=== PATIENT | male | born 1980 | race Caucasian/White ===

== ENCOUNTER 2024-02-22 19:23 | Emergency (ER) | payer OTHER, SELFPAY ==
[2024-02-22 19:26] VITALS: BP 178/120
[2024-02-22 20:13] LABS: ALT (SGPT) 45 U/L (0-50); AST (SGOT) 28 U/L (17-59); Albumin 4.6 g/dl (3.5-5.0); Alkaline Phosphatase 70 U/L (38-126); Blood Urea Nitrogen 15 mg/dl (9-20); Calcium 10.2 mg/dl (8.4-10.2); Carbon Dioxide 29 mmol/L (22-30); Chloride 103 mmol/L (98-107); Glucose 108 mg/dl (70-99); Potassium 4.1 mmol/L (3.5-5.1); Sodium 139 mmol/L (135-145); Total Bilirubin 0.4 mg/dl (0.2-1.3); Total Protein 7.3 g/dl (6.3-8.2); eGFR > 60.00
--- NOTE | 2024-02-22 20:27 | ED.GENMED ---
History of Present Illness
General
Chief Complaint: Breathing Problem
Source: patient
Exam Limitations: none
Time Seen by Provider: 02/22/24 20:19
Travel History
Have you had any contact with someone who has COVID-19?: No
Do you have any symptoms of coronavirus? Fever > 100 degrees, chills, cough, shortness of breath, sore throat, loss of taste or smell, muscle aches, or headache?: No
History of Present Illness
History of Present Illness:
43-year-old male with history of hypertension on 5 mg lisinopril presents 6 days into COVID illness with shortness of breath fatigue symptoms getting worse. Check his blood pressure at home as well and his blood pressure was elevated. He spoke
with his family doctor who recommended taking an additional dose of lisinopril which he did. No vomiting. No current fever. He states he is prone to pneumonia. No other complaints at this time
Past History
Past History
ED Past Medical History: Asthma and Other (pneumonia)
ED Past Surgical History: Cholecystectomy and Other (Eye surgery, hernia repair)
Social History
Tobacco: Non-smoker
Personal: Single
Living: with family
Employment: Employed
Phy Exam
Physical Exam
Physical Exam:
General: Well-appearing obese male no acute respiratory distress HEENT: Normocephalic atraumatic
Heart: Regular rate and rhythm no murmurs
Lungs: Clear no wheeze or rales
Extremities: No cyanosis or edema
Skin: Warm no rash
Course
Orders/Labs/Results
Orders:
Orders
02/22/24 19:29
Electrocardiogram (*1) Urgent
Reason for Study: Shortness of Breath
EKG- Treatment ONCE
CR Chest - 2 Views Urgent
Comment:
Reason For Exam: SOB
02/22/24 19:40
Comprehensive Metabolic Panel Urgent
06/07/24 20:27
0.9% Sodium Chloride 1000 ml [Nss] 1,000 ml IV BOLUS
02/22/24 20:33
Complete Blood Count/With Diff Urgent
Troponin I Urgent
Abnormal Lab Results
02/22/24
19:40
Glucose 108 H mg/dl
(70-99)
02/22/24 20:33
02/22/24 19:40
Vital Signs
Initial and Last Documented VS:
Initial Vital Signs
Temp Pulse Resp BP Pulse Ox
98.3 F 108 20 178/120 98
02/22/24 19:26 02/22/24 19:26 02/22/24 19:26 02/22/24 19:26 02/22/24 19:26
Last Documented Vital Signs
Temp Pulse Resp BP Pulse Ox
98.3 F 94 26 126/77 97
02/22/24 19:26 02/22/24 22:04 02/22/24 21:45 02/22/24 22:04 02/22/24 22:04
MDM/Problems Addressed
Differential Diagnosis Includes:
Shortness of breath known COVID infection. Question possible dehydration versus pneumonitis versus secondary bacterial pneumonia. Will check for anemia as well.
Labs and EKG pending. X-ray pending. Fluids ordered.
*Critical Care Note
Total Time (30-74mins, 75-104mins- exclusive of procedures): Not Applicable
Update Note
Update Note:
EKG shows sinus rhythm. Troponin undetectable chest x-ray clear blood pressure improved. Heart rate is in the 90s oxygen level in the upper 90s. Suspect symptoms related to recent COVID illness. He has an inhaler at home which I continue to
advise to use. No indication for admission. Stable for discharge
ED Attending Note
-
Portions of this chart may have been created with voice recognition software.� Occasional wrong word or��sound alike� substitutions may have occurred due to the inherent limitations of voice recognition software.
Discharge Plan
Departure
Patient Disposition: Home (Routine Discharge)
Date of Disposition: 02/22/24
Time of Disposition: 22:16
Patient with high blood pressure during this ER visit?: No
Discharge Problem:
COVID-19
Instructions: Shortness of Breath (Dyspnea) (DC)
Prescriptions:
No Action
No Current Medications
0
Referrals:
James Hoyos DO [Family Provider] -
Activity Restrictions/Additional Instructions:
Stay hydrated. Continue to use inhaler. Return if needed otherwise follow-up with family doctor
Interventions
Interventions:
*Risk Screen - Suicide Last Done: 02/22/24 19:26
*General Assessment Last Done: 02/22/24 19:26
*Neglect/Abuse Screening Last Done: 02/22/24 19:26
ED- Fall Risk Assessment Last Done: 02/22/24 21:06
*ED COVID-19 Vaccine History Last Done: 02/22/24 19:58
ED- Cardiac Assessment Last Done: 02/22/24 21:06
ED- Pulmonary Assessment Last Done: 02/22/24 21:06
Discharge Date and Time
Print Language: LAO
[2024-02-22] MEDS: NSS 1000 IV (20:53)
[2024-02-22 20:55] LABS: % Basophils 0.3 % (0-2); % Eosinophils 1.8 % (0-6); % Immature Granulocytes 0.2 % (0-0.5); % Lymphocytes 30.5 % (20.5-51.1); % Monocytes 6.9 % (1.7-9.3); % Neutrophils 60.3 % (42.2-75.2); Absolute Eosinophils 0.2 10^3/uL (0-0.7); Absolute Lymphocytes 2.7 10^3/uL (1.2-3.4); Absolute Monocytes 0.6 10^3/uL (0.1-0.6); Absolute Neutrophils 5.3 10^3/uL (1.4-6.5); Hematocrit 39.7 % (39.0-52.0); Hemoglobin 14.3 g/dL (13.0-18.0); Mean Corpuscular Volume 83.2 fL (80.0-94.0); Mean Platelet Volume 9.9 fL (7.4-10.4); Nucleated Red Blood Cells % 0 % (-); Platelet Count 243 10^3/uL (130-400); Red Blood Cell Count 4.77 10^6/uL (4.70-6.10); Red Cell Dist. Width 12.3 % (11.5-14.5); White Blood Cell Count 8.8 10^3/uL (4.8-10.8)
[2024-02-22 21:21] LABS: Troponin I 0.015 ng/ml
[2024-02-22 22:04] VITALS: BP 126/77
== END 2024-02-22 22:23 | disposition home or self-care (01) ==
LOC: EMR 19:23
PROVIDERS: Emergency Medicine; EMERGENCY PHYSICIAN Student in an Organized Health Care Education/Training Program; FAMILY PHYSICIAN Internal Medicine
DX: U07.1 COVID-19 (principal); I10 Essential (primary) hypertension
CPT/HCPCS: 99284; 96360; 71046; 80053; 84484; 85025; 93005

== ENCOUNTER → 2024-04-21 15:19 | Outpatient (REF) | payer OTHER, SELFPAY | LOC: HWRAD 15:19 | PROVIDERS: ATTENDING PHYSICIAN Internal Medicine | DX: R10.13 Epigastric pain (principal) | CPT/HCPCS: 74177; Q9967 ==

== ENCOUNTER → 2024-06-05 11:19 | Outpatient (REF) | payer OTHER, SELFPAY | LOC: DHSLP 11:19 | PROVIDERS: ATTENDING PHYSICIAN Internal Medicine | DX: G47.33 Obstructive sleep apnea (adult) (pediatric) (principal) | CPT/HCPCS: 95800 ==

== ENCOUNTER → 2024-07-01 16:39 | Outpatient (REF) | payer OTHER, SELFPAY | LOC: RAD 16:39 | PROVIDERS: ATTENDING PHYSICIAN Internal Medicine Gastroenterology; FAMILY PHYSICIAN Internal Medicine | DX: R10.11 Right upper quadrant pain (principal) | CPT/HCPCS: 71046 ==

== ENCOUNTER → 2024-07-03 06:22 | Day surgery (SDC) | payer OTHER, SELFPAY | LOC: GI 06:22 | PROVIDERS: ATTENDING PHYSICIAN Internal Medicine Gastroenterology | DX: R10.11 Right upper quadrant pain (principal); K44.9 Diaphragmatic hernia without obstruction or gangrene; K22.89 Other specified disease of esophagus; K31.7 Polyp of stomach and duodenum; K29.50 Unspecified chronic gastritis without bleeding | CPT/HCPCS: 43239; 88305; 88342 ==

== ENCOUNTER 2024-12-30 21:38 | Emergency (ER) | payer OTHER, SELFPAY ==
[2024-12-30 21:50] VITALS: BP 158/101
--- NOTE | 2024-12-30 22:12 | ED.GENMED ---
History of Present Illness
General
Chief Complaint: Chest Pain
Source: patient
Exam Limitations: none
Time Seen by Provider: 12/30/24 22:11
History of Present Illness
History of Present Illness:
44-year-old male presents to the emergency department with chest pain that began around 9 PM tonight. Patient has had similar chest pain in the past, especially when his back pain is exacerbated like it was tonight. Patient was however concerned
because he had pain into his left jaw. The jaw pain resolved but patient came into the
Past History
Past History
ED Past Medical History: Asthma and Other (pneumonia)
ED Past Surgical History: Cholecystectomy and Other (Eye surgery, hernia repair)
Social History
Tobacco: Non-smoker
Personal: Single
Living: with family
Employment: Employed
Review of Systems
Review of Systems
Allergies reviewed?: Yes
All Other Systems: ROS reviewed and negative except as documented in HPI and ROS
Constitutional: Reports no symptoms
EENT: Reports no symptoms
Respiratory: Reports no symptoms
Cardiac: Reports chest pain
ABD/GI: Reports no symptoms
: Reports no symptoms
Musculoskeletal: Reports no symptoms
Skin: Reports no symptoms
Neurological: Reports no symptoms
Endocrine: Reports no symptoms
Hematologic/Lymphatic: Reports no symptoms
Psychiatric: Reports anxiety
Phy Exam
General Physical Exam
General Presentation: well appearing and no apparent distress
General Skin: warm and dry
General Habitus: normal
General Mental: alert
General Hydration: appears well hydrated
ENT Exam
ENT Exam: EOMI, pharynx normal, neck supple and normocephalic
Eye Exam
Eye Exam: PERRL, cornea clear and conjunctiva normal
Cardiovascular Exam
Cardiovascular Exam: regular rate/rhythm, no edema, no murmur and normal peripheral pulses
Pulmonary Exam
Pulmonary Exam: lungs clear, no respiratory distress, no rales, no crackles, no rhonchi, no stridor, no wheezing and no cough
Gastrointestinal Exam
Gastrointestinal Exam: normal bowel sounds, non tender, soft, no organomegaly, no pulsatile mass and non distended
Neurological Exam
Neurological Exam: alert, oriented x3, no motor deficits and speech normal
Musculoskeletal Exam
Musculoskeletal Exam: full ROM and no edema
Skin Exam
Skin Exam: normal color, warm/dry, no rash and no petechia
Psychiatric Exam
Psychiatric Exam: normal mood/affect and anxious
Scores
Heart Score for Chest Pain Patients
STEMI patient?: No
History: Slightly or Non-Suspicious
ECG: Normal
Age: </= 45 years
Risk Factors: 1 or 2 Risk Factors
Troponin: </= Normal Limit
Heart Score for Chest Pain Patients: 1
Heart Score Risk: 2.5% MACE over next 6 weeks
Course
Orders/Labs/Results
Orders:
Orders
12/30/24 21:39
ECG [Electrocardiogram (*1)] Urgent
Reason for Study: Chest Pain
12/30/24 21:40
EKG- Treatment ONCE
12/30/24 22:18
Complete Blood Count/With Diff Urgent
Comprehensive Metabolic Panel Urgent
Troponin I Urgent
12/30/24 22:40
Chest [CR Chest - 2 Views ] Urgent
Comment:
Reason For Exam: chest pain
12/30/24 23:43
Calcium 200mg(Ca. Carb. 500mg) [Tums Chewable Tablet] 200 mg PO NOW STA
12/30/24 23:53
Sucralfate Suspension [Carafate Suspension] 1 gm PO NOW STA
12/31/24 00:19
EKG- Treatment ONCE
12/31/24 02:45
EKG [Electrocardiogram (*1)] Urgent
Reason for Study: Chest Pain
Troponin I Urgent
Abnormal Lab Results
12/30/24
22:18
RBC 4.58 L 10^6/uL
(4.70-6.10)
Glucose 111 H mg/dl
(70-99)
12/30/24 22:18
12/30/24 22:18
Vital Signs
Initial and Last Documented VS:
Initial Vital Signs
Temp Pulse Resp BP Pulse Ox
97.8 F 82 20 158/101 96
12/30/24 21:50 12/30/24 21:50 12/30/24 21:50 12/30/24 21:50 12/30/24 21:50
Last Documented Vital Signs
Temp Pulse Resp BP Pulse Ox
97.8 F 80 26 114/74 99
12/30/24 21:50 12/31/24 04:09 12/31/24 04:00 12/31/24 03:23 12/31/24 04:09
*EKG
Interpreted by ED Provider?: Yes
EKG Intrepretation Date: 12/30/24
Interpretation: normal
Comparison EKG: no changes
Heart Rate: 81
Rate: normal
Rhythm: sinus
[place]: normal axis
Interval: normal interval
QRS Pattern: normal QRS
Ischemia: no ischemia
*Critical Care Note
Total Time (30-74mins, 75-104mins- exclusive of procedures): Not Applicable
Patient Management
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
ED Attending Note
-
Portions of this chart may have been created with voice recognition software.� Occasional wrong word or��sound alike� substitutions may have occurred due to the inherent limitations of voice recognition software.
Discharge Plan
Departure
Patient Disposition: Home (Routine Discharge)
Date of Disposition: 12/31/24
Time of Disposition: 04:10
Patient with high blood pressure during this ER visit?: Yes
Condition: Good
Discharge Problem:
Chest pain
Instructions: Chest Pain PCP Follow Up
Prescriptions:
No Action
No Current Medications
0
Referrals:
James Hoyos DO [Family Provider] -
Activity Restrictions/Additional Instructions:
Thank You for choosing [facility].
It was a pleasure meeting you and taking part in your care. We hope for your continued healing and wellness.
Please read discharge instructions in their entirety. However, they are for general education and may not describe your exact diagnosis at discharge. Information on your ER visit and medical conditions were discussed with you along with appropriate
follow up information...
If indicated, please take your medications as instructed and indicated on discharge paperwork.
Please schedule a follow up appointment as directed. Call to schedule an appointment
Please return to the emergency department with ANY change in, persisting, or worsening of symptoms. If any of your symptoms do not improve, or persist, or become more severe within 6-12 hours, please return to the emergency department for further
care.
Please return to the emergency department if you develop a headache, neck pain/stiffness, fever greater than 100.4F, chest pain, shortness of breath, persistent nausea, vomiting, slurred speech, difficulty walking, numbness/tingling, weakness, signs
of infection or any other symptoms that are worrisome to you.
If you have any questions or concerns please do not hesitate to call the Hospital at or E-mail me directly at [email or web address]
Interventions
Interventions:
*Risk Screen - Suicide Last Done: 12/30/24 21:50
*General Assessment Last Done: 12/30/24 21:50
*Neglect/Abuse Screening Last Done: 12/30/24 21:50
*ED- Fall Risk Assessment Last Done: 12/30/24 22:08
*ED COVID-19 Vaccine History Last Done: 12/30/24 21:50
ED- Cardiac Assessment Last Done: 12/30/24 22:17
Discharge Date and Time
Print Language: BRUNEIAN
[2024-12-30 22:18] VITALS: BMI 47.9
[2024-12-30 22:19] VITALS: BP 129/90
[2024-12-30 22:21] VITALS: BP 129/90
[2024-12-30 22:30] LABS: % Basophils 0.6 % (0-2); % Eosinophils 1.5 % (0-6); % Immature Granulocytes 0.3 % (0-0.5); % Lymphocytes 31.9 % (20.5-51.1); % Monocytes 6.8 % (1.7-9.3); % Neutrophils 58.9 % (42.2-75.2); Absolute Basophils 0.1 10^3/uL (0-0.2); Absolute Eosinophils 0.1 10^3/uL (0-0.7); Absolute Lymphocytes 2.5 10^3/uL (1.2-3.4); Absolute Monocytes 0.5 10^3/uL (0.1-0.6); Absolute Neutrophils 4.6 10^3/uL (1.4-6.5); Hematocrit 39.9 % (39.0-52.0); Hemoglobin 13.7 g/dL (13.0-18.0); Mean Corp Hgb Conc. 34.3 g/dL (33.0-37.0); Mean Corpuscular Hgb 29.9 pg (27.0-31.0); Mean Corpuscular Volume 87.1 fL (80.0-94.0); Mean Platelet Volume 9.9 fL (7.4-10.4); Nucleated Red Blood Cells % 0 % (-); Platelet Count 215 10^3/uL (130-400); Red Blood Cell Count 4.58 10^6/uL (4.70-6.10); Red Cell Dist. Width 12.2 % (11.5-14.5); White Blood Cell Count 7.8 10^3/uL (4.8-10.8)
[2024-12-30 22:43] LABS: ALT (SGPT) 46 U/L (0-50); AST (SGOT) 26 U/L (17-59); Albumin 4.2 g/dl (3.5-5.0); Alkaline Phosphatase 79 U/L (38-126); Blood Urea Nitrogen 17 mg/dl (9-20); Calcium 9.7 mg/dl (8.4-10.2); Carbon Dioxide 27 mmol/L (22-30); Chloride 104 mmol/L (98-107); Estimated Creatinine Clearance > 125 ml/min; Glucose 111 mg/dl (70-99); Potassium 4.1 mmol/L (3.5-5.1); Sodium 141 mmol/L (135-145); Total Bilirubin 0.4 mg/dl (0.2-1.3); Total Protein 6.7 g/dl (6.3-8.2); eGFR > 60.00
[2024-12-30 22:54] LABS: Troponin I < 0.012 ng/ml
[2024-12-30 23:05] VITALS: BP 129/78
[2024-12-30] MEDS: CARAFATE SUSPENSION 1 GM PO (23:56)
[2024-12-31] VITALS: BP 121/77
[2024-12-31 01:00] VITALS: BP 101/52
[2024-12-31 02:23] VITALS: BP 117/76
[2024-12-31 02:25] VITALS: BP 117/76
[2024-12-31 03:23] VITALS: BP 114/74
[2024-12-31 03:56] LABS: Troponin I < 0.012 ng/ml
== END 2024-12-31 04:35 | disposition home or self-care (01) ==
LOC: EMR 21:38
PROVIDERS: Student in an Organized Health Care Education/Training Program; EMERGENCY PHYSICIAN Student in an Organized Health Care Education/Training Program; FAMILY PHYSICIAN Internal Medicine
DX: R07.89 Other chest pain (principal); M54.9 Dorsalgia, unspecified; R03.0 Elevated blood-pressure reading, without diagnosis of hypertension; F41.9 Anxiety disorder, unspecified; J45.909 Unspecified asthma, uncomplicated; Z56.6 Other physical and mental strain related to work; Z87.01 Personal history of pneumonia (recurrent); Z90.49 Acquired absence of other specified parts of digestive tract
CPT/HCPCS: 99285; 71046; 80053; 84484; 85025; 93005

== ENCOUNTER → 2025-04-10 11:36 | Outpatient (REF) | payer OTHER, SELFPAY | LOC: RCS 11:36 | PROVIDERS: ATTENDING PHYSICIAN Internal Medicine | DX: R07.89 Other chest pain (principal) | CPT/HCPCS: 78452; 93017; A9500 ==

== ENCOUNTER → 2025-05-11 07:10 | Outpatient (REF) | payer OTHER, SELFPAY | LOC: RCS 07:10 | PROVIDERS: ATTENDING PHYSICIAN Nuclear Medicine Nuclear Cardiology; FAMILY PHYSICIAN Internal Medicine | DX: I10 Essential (primary) hypertension (principal) | CPT/HCPCS: 93306 ==

== ENCOUNTER → 2025-08-07 10:39 | Outpatient (REF) | payer OTHER, SELFPAY | LOC: RAD 10:39 | PROVIDERS: ATTENDING PHYSICIAN Nurse Practitioner Primary Care | DX: R06.2 Wheezing (principal) | CPT/HCPCS: 71046 ==

== ENCOUNTER 2025-08-10 21:21 | Observation (INO) | payer OTHER, SELFPAY ==
[2025-08-10] VITALS (8 sets, daily range): BP systolic 122–164; BP diastolic 71–98; BMI 47.3; BMI 46.9
--- NOTE | 2025-08-10 13:23 | EDRN ---
Pt states he is here for SOB, hard time catching his breath, wheezing, cough (non-productive) chest tight. Pt has asthma, bronchitis and PNA history. Breathing symtpoms started . PCP seen on Sunday. Pt discharged on 2 inhalers (airsupra
90/60), other inhaler a powder. Pt just finished a Z-nithya this am and still on prednisone daily dose. CXR here on Sunday.
[2025-08-10] MEDS: DUONEB 3 ML INH ×4 (13:57→23:14)
--- NOTE | 2025-08-10 14:05 | EDRN ---
Dr. Vivas in to see pt (ED Resident MD).
--- NOTE | 2025-08-10 14:06 | ED.GENMED ---
History of Present Illness
<Tyler Alvarenga MD, Resident - Last Filed: 08/10/25 16:41>
General
Chief Complaint: Breathing Problem
Source: patient and spouse
Time Seen by Provider: 08/10/25 13:53
History of Present Illness
History of Present Illness:
Patient is a 44-year-old male with reported past medical history of asthma, sleep apnea, Mohs surgery of scalp,Non-smoker who presented to ED with complaint of worsening shortness of breath.
Viral upper respiratory tract symptoms 2 weeks ago, that worsened requiring steroids and Zpack. Due to worsening shortness of breath, he went to his primary care physician who did a chest x-ray and a consolidation that was negative for any
consolidation or changes suggestive of pneumonia. Although symptoms have resolved but his shortness of breath persist.
Does report some chest discomfort with coughing but otherwise denies any nausea, vomiting, fever, chills,brain fog, dizziness or any syncopal episodes.
Did not receive covid/flu shot this season
Past History
<Tyler Alvarenga MD, Resident - Last Filed: 08/10/25 16:41>
Past History
ED Past Medical History: Asthma and Other (pneumonia)
ED Past Surgical History: Cholecystectomy and Other (Eye surgery, hernia repair)
Social History
Tobacco: Non-smoker
Personal: Single
Living: with family
Employment: Employed
Review of Systems
<Tyler Alvarenga MD, Resident - Last Filed: 08/10/25 16:41>
Review of Systems
EENT: Reports no symptoms
Respiratory: Reports cough and trouble breathing
Cardiac: Reports no symptoms
ABD/GI: Reports no symptoms
: Reports no symptoms
Musculoskeletal: Reports no symptoms
Skin: Reports no symptoms
Endocrine: Reports no symptoms
Hematologic/Lymphatic: Reports no symptoms
Psychiatric: Reports no symptoms
Phy Exam
<Tyler Alvarenga MD, Resident - Last Filed: 08/10/25 16:41>
General Physical Exam
General Presentation: moderate distress (due to SOB)
General Skin: warm and dry
General Habitus: obese
General Mental: alert
Cardiovascular Exam
Cardiovascular Exam: regular rate/rhythm, no edema, no murmur and normal peripheral pulses
Pulmonary Exam
Pulmonary Exam: lungs clear, no respiratory distress, no rales, no rhonchi and no wheezing
Gastrointestinal Exam
Gastrointestinal Exam: normal bowel sounds, non tender and soft
Neurological Exam
Neurological Exam: alert and oriented x3
Musculoskeletal Exam
Musculoskeletal Exam: full ROM
Skin Exam
Skin Exam: normal color, warm/dry and other (Moh's surgery scar on scalp)
<Gabo Nazario, DO - Last Filed: 08/10/25 20:31>
Physical Exam
Physical Exam:
.
Course
<Tyler Alvarenga MD, Resident - Last Filed: 08/10/25 16:41>
Orders/Labs/Results
Orders:
Orders
08/10/25 13:35
Electrocardiogram (*1) Urgent
Reason for Study: Chest Pain
Cardiac Monitoring- Treatment ONCE
EKG- Treatment ONCE
IV Insert/Care/Rem.- Treatment PRN
08/10/25 13:51
COVID-19 Antigen Urgent
Source: Nasal Swab
Complete Blood Count/With Diff Urgent
Comprehensive Metabolic Panel Urgent
Troponin I Urgent
Influenza A+B Rapid Molecular Urgent
JOHAN Source: Nasal Swab
Specimen Description:
08/10/25 13:55
Ipratropium/Albuterol Sulfate [Duoneb] 3 ml .ROUTE .STK-MED ONE
08/10/25 13:57
Ipratropium/Albuterol Sulfate [Duoneb] 3 ml INH R NOW ONE
08/10/25 14:29
CR Chest - 2 Views Urgent
Comment:
Reason For Exam: sob
08/10/25 14:41
D-Dimer Urgent
08/10/25 15:26
Ipratropium/Albuterol Sulfate [Duoneb] 3 ml INH R NOW ONE
08/10/25 15:42
Ipratropium/Albuterol Sulfate [Duoneb] 3 ml INH R NOW ONE
08/10/25 16:40
CT Chest PE Study Urgent
Comment:
Reason For Exam: worsening sob
08/10/25 19:38
Albuterol Nebs [Ventolin Nebules] 2.5 mg .ROUTE .STK-MED ONE
08/10/25 19:39
Albuterol Nebs [Ventolin Nebules] 2.5 mg INH R NOW STA
08/10/25 20:21
Dexamethasone Sod Phosphate [Decadron] 10 mg IV NOW STA
Abnormal Lab Results
08/10/25
13:51
WBC 12.5 H 10^3/uL
(4.8-10.8)
Abs Immat Gran (auto) 0.1 H 10^3/uL
(0-0.05)
Absolute Neuts (auto) 10.2 H 10^3/uL
(1.4-6.5)
Immature Gran % 0.6 H %
(0-0.5)
Neutrophils % 81.5 H %
(42.2-75.2)
Lymphocytes % 14.2 L %
(20.5-51.1)
Glucose 110 H mg/dl
(70-99)
ALT 68 H U/L
(0-50)
08/10/25 13:51
08/10/25 13:51
Vital Signs
Initial and Last Documented VS:
Initial Vital Signs
Temp Pulse Resp BP Pulse Ox
98.2 F 105 18 134/82 97
08/10/25 12:56 08/10/25 12:56 08/10/25 12:56 08/10/25 12:56 08/10/25 12:56
Last Documented Vital Signs
Temp Pulse Resp BP Pulse Ox
98.2 F 100 27 122/71 96
08/10/25 12:56 08/10/25 18:30 08/10/25 18:30 08/10/25 18:12 08/10/25 19:08
<Gbao Nazario, - Last Filed: 08/10/25 20:31>
Orders/Labs/Results
Orders:
Orders
08/10/25 13:35
Electrocardiogram (*1) Urgent
Reason for Study: Chest Pain
Cardiac Monitoring- Treatment ONCE
EKG- Treatment ONCE
IV Insert/Care/Rem.- Treatment PRN
08/10/25 13:51
COVID-19 Antigen Urgent
Source: Nasal Swab
Complete Blood Count/With Diff Urgent
Comprehensive Metabolic Panel Urgent
Troponin I Urgent
Influenza A+B Rapid Molecular Urgent
JOHAN Source: Nasal Swab
Specimen Description:
08/10/25 13:55
Ipratropium/Albuterol Sulfate [Duoneb] 3 ml .ROUTE .STK-MED ONE
08/10/25 13:57
Ipratropium/Albuterol Sulfate [Duoneb] 3 ml INH R NOW ONE
08/10/25 14:29
CR Chest - 2 Views Urgent
Comment:
Reason For Exam: sob
08/10/25 14:41
D-Dimer Urgent
08/10/25 15:26
Ipratropium/Albuterol Sulfate [Duoneb] 3 ml INH R NOW ONE
08/10/25 15:42
Ipratropium/Albuterol Sulfate [Duoneb] 3 ml INH R NOW ONE
08/10/25 16:40
CT Chest PE Study Urgent
Comment:
Reason For Exam: worsening sob
08/10/25 19:38
Albuterol Nebs [Ventolin Nebules] 2.5 mg .ROUTE .STK-MED ONE
08/10/25 19:39
Albuterol Nebs [Ventolin Nebules] 2.5 mg INH R NOW STA
08/10/25 20:21
Dexamethasone Sod Phosphate [Decadron] 10 mg IV NOW STA
Abnormal Lab Results
08/10/25
13:51
WBC 12.5 H 10^3/uL
(4.8-10.8)
Abs Immat Gran (auto) 0.1 H 10^3/uL
(0-0.05)
Absolute Neuts (auto) 10.2 H 10^3/uL
(1.4-6.5)
Immature Gran % 0.6 H %
(0-0.5)
Neutrophils % 81.5 H %
(42.2-75.2)
Lymphocytes % 14.2 L %
(20.5-51.1)
Glucose 110 H mg/dl
(70-99)
ALT 68 H U/L
(0-50)
08/10/25 13:51
08/10/25 13:51
Vital Signs
Initial and Last Documented VS:
Initial Vital Signs
Temp Pulse Resp BP Pulse Ox
98.2 F 105 18 134/82 97
08/10/25 12:56 08/10/25 12:56 08/10/25 12:56 08/10/25 12:56 08/10/25 12:56
Last Documented Vital Signs
Temp Pulse Resp BP Pulse Ox
98.2 F 100 27 122/71 96
08/10/25 12:56 08/10/25 18:30 08/10/25 18:30 08/10/25 18:12 08/10/25 19:08
<Tyler Alvarenga MD, Resident - Last Filed: 08/10/25 16:41>
MDM/Problems Addressed
Differential Diagnosis Includes:
Pneumonia
Pulmonary embolism
Acute exacerbation of asthma
Atelectasis/scar tissue
Pleural effusion/pneumothorax
Flu/COVID
Bronchitis
MDM/Problems Addressed:
Patient is short of breath at rest with normal oxygen saturations, tachycardic, blood pressures normal, reports some chest pain with breathing, no suspicion for pulmonary embolism, D-dimer is normal, less likely PE
Chest x-ray negative for pneumonia, atelectasis, effusion, pneumothorax
Flu and COVID-negative
Patient reported improvement with DuoNebs, will do [id number] DuoNebs
Reassured the patient that with bronchitis it takes longer for the lung to get back to its normal functional capacity
Duonebs not helping
check ct pe study
<yTler Alvarenga MD, Resident - Last Filed: 08/10/25 16:41>
*Pulse Oximetry
SaO2: 98
Oxygen Mode of Delivery: Room air
Patient hypoxic: no
*Critical Care Note
Total Time (30-74mins, 75-104mins- exclusive of procedures): Not Applicable
<Gabo Nazario DO - Last Filed: 08/10/25 20:31>
*Critical Care Note
Total Time (30-74mins, 75-104mins- exclusive of procedures): 30 minutes
Data Reviewed
Prescriptions/Medications Considered But Not Given:
Consider antibiotics but afebrile
<Gabo Nazario DO - Last Filed: 08/10/25 20:31>
Patient Management
Discussion with other providers: Hospitalist
Escalation/DeEscalation of care consider admission/obs:
44 year-old male presents with wheezing and dyspnea. Observed in the ED times several hours CTA showing no PE. Continues to have intermittent wheezing and tachypnea. Not hypoxic but is slightly tachycardic. At this point we will give IV steroids
and admit as his tachypnea and dyspnea persist. Likely needs continued bronchodilators as well as steroid regimen
ED Attending Note
<Tyler Alvarenga MD, Resident - Last Filed: 08/10/25 16:41>
-
Portions of this chart may have been created with voice recognition software.� Occasional wrong word or��sound alike� substitutions may have occurred due to the inherent limitations of voice recognition software.
<Gabo Nazario DO - Last Filed: 08/10/25 20:31>
ED Attending Note
Patient seen and examined by attending physician: Yes
I performed a history and physical exam of patient and discussed management with resident, I reviewed resident's note and agree with documented findings and plan of care.: Yes
ED Attending Note:
44-year-old obese male who presents with persistent dyspnea. was recently treated for pneumonia and given a course of steroids. Exam: Obese, wheezing noted bilaterally, tachypneic, mildly tachycardic, no lower extremity edema, no JVD. Assessment
and plan: Continue bronchodilators and IV steroids. CTA negative for PE. On reassessment tachypnea persist and the patient did start wheezing again and given another DuoNeb. At this point will admit with IV steroids
Discharge Plan
Departure
Patient Disposition: Admit
Date of Disposition: 08/10/25
Time of Disposition: 20:27
Admit to: Med/Surg
Presentation/result/management discussed w/ accepting MD/DO: Hospitalist
Discharge Problem:
Exacerbation of reactive airway disease
Prescriptions:
No Action
buspirone [BuSpar] 5 mg Tablet
15 mg PO DAILY
fluticasone propion-salmeterol [Advair Diskus] 250-50 mcg/dose Blister With Device
1 inh INHALATION R BID
azithromycin 250 mg Tablet
0 mg PO .COMPLEX
Rx Instructions:
For 250 mg dose pack: take 500 mg today (day 1), then 250 mg for 4 days (days 2-5)
prednisone 20 mg Tablet
20 mg PO BID
Rx Instructions:
for 5 days starting 08/06/25
pantoprazole [Protonix] 40 mg Tablet,Delayed Release (Dr/Ec)
40 mg PO DAILY
olmesartan [Benicar] 20 mg Tablet
20 mg PO DAILY
cholecalciferol (vitamin D3) [Vitamin D3] 25 mcg (1,000 unit) Tablet
25 mcg PO DAILY
Airsupra 90-80 mcg/actuation Hfa Aerosol Inhaler
2 inh INHALATION R Q6HPRN PRN (Reason: sob)
Rx Instructions:
as a single dose; may repeat up to 6 doses per day (12 inhalations)
Referrals:
James Hoyos DO [Family Provider, Internal Medicine]
Interventions
Interventions:
*Risk Screen - Suicide Last Done: 08/10/25 12:56
*General Assessment Last Done: 08/10/25 13:30
*Neglect/Abuse Screening Last Done: 08/10/25 12:56
*ED- Fall Risk Assessment Last Done: 08/10/25 13:29
*ED COVID-19 Vaccine History Last Done: 08/10/25 13:29
*ED Influenza Vaccine History Last Done: 08/10/25 13:29
ED- Cardiac Assessment Last Done: 08/10/25 14:02
ED- Pulmonary Assessment Last Done: 08/10/25 14:02
Discharge Date and Time
Print Language: MOLDOVAN
--- NOTE | 2025-08-10 14:08 | EDRN ---
Pt tachypneic, not able to speak a whole sentence w/out taking a breaths in between his words, tachypneic w/ rate 30+ per min, cough, accessory muscle use, increased SOB w/ sl movement on stretcher and talking, cough. pt has been sick for 12 days
popeye and had fever a week ago Sat up to 102.
[2025-08-10 14:19] LABS: ALT (SGPT) 68 U/L (0-50); AST (SGOT) 29 U/L (17-59); Albumin 4.9 g/dl (3.5-5.0); Alkaline Phosphatase 78 U/L (38-126); Blood Urea Nitrogen 11 mg/dl (9-20); Calcium 9.7 mg/dl (8.4-10.2); Carbon Dioxide 26 mmol/L (22-30); Chloride 104 mmol/L (98-107); Estimated Creatinine Clearance > 125 ml/min; Glucose 110 mg/dl (70-99); Potassium 4.7 mmol/L (3.5-5.1); Sodium 137 mmol/L (135-145); Total Protein 7.8 g/dl (6.3-8.2); eGFR > 60.00
[2025-08-10 14:26] LABS: COVID-19 Antigen Negative (Negative)
[2025-08-10 14:30] LABS: Troponin I 0.013 ng/ml
[2025-08-10 14:42] LABS: Hematocrit 43.7 % (39.0-52.0); Hemoglobin 14.6 g/dL (13.0-18.0); Mean Corp Hgb Conc. 33.4 g/dL (33.0-37.0); Mean Corpuscular Volume 90.1 fL (80.0-94.0); Nucleated Red Blood Cells % 0 % (-); Platelet Count 295 10^3/uL (130-400); Red Cell Dist. Width 12.6 % (11.5-14.5)
--- NOTE | 2025-08-10 14:45 | EDRN ---
Called lab as CBC not resulted and they said it is resulted and entering results into pt's chart now.
[2025-08-10 15:17] LABS: D-Dimer 0.41 ug/mlFEU (0.00-0.50)
[2025-08-10] MEDS: VENTOLIN NEBULES 2.5 MG INH (19:39)
--- NOTE | 2025-08-10 20:46 | HPS.HSE ---
Family Physician
-
Family Physician: James Hoyos
Chief Complaint
-
Cough, wheezing
History of Present Illness
44-year-old morbidly obese male complaining of viral URI symptoms 2 weeks ago with fever, sore throat and bodyaches lasting 3 to 4 days then developed into nasal and sinus congestion. 6 days ago he developed hoarse voice with cough and wheezing.
He was seen by his PCP 5 days ago placed on Z-Humphrey and prednisone 40 mg of which he is 2 days left along with Advair discus and albuterol inhaler. That worsened including shortness of breath. He reports he uses CPAP full mask at night which
relieves his cough then it resumes when he removes it. He states he typically has mild asthma only exacerbated when he gets sick or with exercise however over the past year has been having more episodes of shortness of breath possibly wheezing. He
does have a [employer] for his sleep apnea however has not seen them for asthma. His last hospitalization was when he was 20 years old he has never required intubation. He reports frequent coughing which is causing chest discomfort. He denies
fever, chills, headache, sore throat, palpitations, abdominal pain, nausea, vomiting, diarrhea, urinary symptoms. He has past medical history of asthma, sleep apnea, class III obesity�BMI 47.2, HTN, GERD, anxiety Mohs surgery
Medical History
Past Medical History
Past Medical History: Reports Other
Additional Past Medical History:
Asthma�mild
Sleep apnea
Class III obesity�BMI 47.2
HTN
GERD
Anxiety
Past Surgical History: Reports Other
Additional Past Surgical History:
Mohs surgery
Cholecystectomy
Social History
Tobacco: Non-smoker
Alcohol: Binge drinker (Drink 6-12 beers each weekend last drink 2 weeks ago)
Living: With Family
Employment: Employed
Family History
Family History: Not pertinent
Allergies / Home Medications
Allergies reflects when Allergies were last updated in [facility].
Home Medications with original date entered in [facility]
Allergy/Medication List:
Allergies
Allergy/AdvReac Type Severity Reaction Status Date / Time
No Known Allergies Allergy Verified 08/10/25 12:56
Home Medications
albuterol 90 mcg-budesonide 80 mcg/actuation HFA aerosol inhaler (Airsupra) 2 inh inhalation R Q6HPRN PRN sob 08/10/25
azithromycin 250 mg tablet 0 mg PO .COMPLEX 08/10/25
buspirone 5 mg tablet 15 mg PO DAILY Mental Health/Anxiety 08/10/25
cholecalciferol (vitamin D3) 25 mcg (1,000 unit) tablet (Vitamin D3) 25 mcg PO DAILY Supplement 08/10/25
fluticasone 250 mcg-salmeterol 50 mcg/dose blistr powdr for inhalation (Advair Diskus) 1 inh inhalation R BID Lung/Breathing Issues 08/10/25
olmesartan 20 mg tablet (Benicar) 20 mg PO DAILY Heart Disease/Condition 08/10/25
pantoprazole 40 mg tablet,delayed release (Protonix) 40 mg PO DAILY Gastrointestinal Issue 08/10/25
prednisone 20 mg tablet 20 mg PO BID Infection 08/10/25
Review of Systems
-
History Source: Patient
A 12 point ROS was completed and negative except as noted: Yes
Constitutional: Denies Fever or Chills
EENT: Denies Sore Throat or Runny Nose
Respiratory: Reports Cough and Trouble Breathing (Wheezing)
Cardiac: Denies Chest Pain, Diaphoresis, Palpitations or Syncope
Abdomen/GI: Denies Abdominal Pain, Nausea, Vomiting, Diarrhea or Constipated
: Denies Dysuria, Frequency, Flank Pain or Incontinence
Musculoskeletal: Denies Joint Pain or Edema
Skin: Denies Itching or Rash
Neurological: Denies Dizzy, Headache or Weakness
Endocrine: Reports No Symptoms
Hematologic/Lymphatic: Reports No Symptoms
Psych: Reports Calm
Physical Exam
Vital Signs
Vital Signs
Temp Pulse Resp BP Pulse Ox
98.2 F 111 26 122/71 98
08/10/25 12:56 08/10/25 20:30 08/10/25 20:30 08/10/25 18:12 08/10/25 20:30
Physical Exam
General: Comfortable and Conversant
HEENT: NormoCephalic, Anicteric, Moist mucous membranes, PERRLA, [place] Conjunctivae and No Ptosis
Respiratory: Clear (Post nebulizer but with active frequent cough); No Wheezes, Rales or Rhonchi
Cardiac: S1/S2 and Regular Rhythm; No Murmur, Rub or Gallop
Breast: Deferred by me
GI: Soft, Non Tender, Non Distended and Normal Bowel Sounds
Genito-urinary: Deferred by me
Musculoskeletal: No Clubbing, No Cyanosis and No Edema
Skin: Warm and Dry; No Rash or Jaundice
Neuro: AO x 3, No Motor Deficits, Nonfocal/grossly intact, Cranial Nerves Intact and No Sensory Deficits; No Slurred Speech, Facial Droop, Tremors or Sedated
Psych: Calm
Laboratory Results
-
08/10/25 13:51
08/10/25 13:51
Laboratory Results
Total Bilirubin 0.3 mg/dl (0.2-1.3) 08/10/25 13:51
AST 29 U/L (17-59) 08/10/25 13:51
ALT 68 U/L (0-50) H 08/10/25 13:51
Alkaline Phosphatase 78 U/L (38-126) 08/10/25 13:51
Troponin I 0.013 ng/ml 08/10/25 13:51
Data Reviewed
-
Diagnostic Radiology: Report Reviewed by me
CT Scan: Report Reviewed by me
Lab Data: Labs Reviewed by me
Impression/Plan
-
Impression/plan:
Observation MedSurg
#Acute on chronic Asthmatic Bronchitis exacerbation
WBC 12.5 with left shift, afebrile 98.2, HR 111
94-98% RA
COVID/influenza negative
- Completed 5 days of Z-Humphrey( Cxr: 08/07/25 Minimal lingular opacity likely representing subsegmental atelectasis).
-Completed 3 days of prednisone 40 mg daily
-Decadron 10 given in ER IV Decadron 4 mg every 12 hours
- Continue Advair discus or equivalent
- Continue DuoNebs scheduled and as needed
- Cough suppressant during daytime
CT chest: No evidence for PE
CXR: No acute cardiopulmonary abnormality
#Sleep apnea
- Patient may use own CPAP
#Class III obesity�BMI 47.2
- Weight loss recommended affects all aspects of care
Alcohol use disorder
Binge drinks 6-12 beers each weekend has not had alcohol past 2 weekends
Cessation advised patient made aware ALT elevated 68
#HTN�benign
Continue Benicar 20 mg daily
#Anxiety
Continue BuSpar 15 mg daily
#GERD
-Continue Protonix 40 mg daily
DVT prophylaxis
Subcu Lovenox
Full code
--- NOTE | 2025-08-10 21:04 | W.PN.UPDATE ---
Update Note
Progress Note Update
This note serves as an addendum to the H&P by dust collector attendant Tasia Hudson
HPI
44M
Morbidly Obesity
PMH; ANTELMO on CPAP HS, suspect ? Reactive AW dz , denied childhood Asthma
Seen at ER :
- pw worsening SOB and wheezing.
- reports that he was treated by PCP with Z-Pack, prednisone and Albuterol.
- CXR 08/07 - NEG for PNA
- Pt was seen again by PCP today and advised to come to the ER.
6-12 beers over the week end
At ER:
IV Decadron 10 mg
DuoNeb x3
Relevant VS
Temp Pulse Resp BP Pulse Ox
98.2 F 111 26 122/71 98
08/10/25 12:56 08/10/25 20:30 08/10/25 20:30 08/10/25 18:12 08/10/25 20:30
PE
Gen:Morbidly Class III Obesity
HEENT: anicteric
Neck: supple
Lungs: cough with deep breathing. No wheeze s/p 3 DuoNebs
Cor: ST S1 S2
Abdomen:�obese
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
MS: no edema
Psych: Nl mood and affect
Relevant Data
08/10/25 08/10/25
13:51 14:41
WBC 12.5 H
D-Dimer 0.41
Creatinine 0.8
eGFR > 60.00
Troponin I 0.013
EKG
NORMAL SINUS RHYTHM
NORMAL ECG
WHEN COMPARED WITH ECG OF 31-Dec-2024 02:50,
NO SIGNIFICANT CHANGE WAS FOUND
Confirmed by JULIETA MARTINS MD ([id number]) on 08/10/2025 4:09:47 PM
CXR: No acute cardiopulmonary abnormality.
CTC PE: No CTA evidence for an acute pulmonary thromboembolism within the limitations discussed above.
NO PRIOR hospitalist admission:
ASSESSMENT & PLAN
Acute asthmatic bronchitis - failed OP Tx
Adequate Oxygenation on RA
- NEG CXR
- IV Decadron 4 mg BID
- DuoNeb qid and PRN
ANTELMO
- CPAP HS ( own)
Anxiety
- stable on Buspar
Suspect Binge ETOH use disorder
6-12 beers over the week end
- not drinking over last 2 week ends
- Low risk for ETOH WDS
DVT Px: LMWH
Code: Full code
OBS MS
[2025-08-10] MEDS: DECADRON 10 MG IV (21:17)
--- NOTE | 2025-08-10 23:00 | PTCARENOTE ---
Pt arrived to [facility] from ED. AAOx3, harsh dry cough noted with expiratory wheeze. Plan of care reviewed with pt. Pt oriented to room with call anton in reach.
[2025-08-10] MEDS: ROBITUSSIN DM 5 ML PO (23:03)
[2025-08-11] MEDS: ADVAIR HFA 115/21 MCG INHALER 2 PUFF INH (05:59)
[2025-08-11] MEDS: DUONEB 3 ML INH ×3 (05:59→14:41)
[2025-08-11] MEDS: ROBITUSSIN DM 5 ML PO (06:28)
[2025-08-11] MEDS: VITAMIN D3 (cholecalciferol) 25 MCG PO (07:34)
[2025-08-11] MEDS: COZAAR 50 MG PO (07:35)
[2025-08-11] MEDS: PROTONIX 40 MG PO (07:35)
[2025-08-11] MEDS: DECADRON 4 MG IV (07:35)
[2025-08-11 07:42] LABS: Hematocrit 44.1 % (39.0-52.0); Hemoglobin 15.1 g/dL (13.0-18.0); Mean Corp Hgb Conc. 34.2 g/dL (33.0-37.0); Mean Corpuscular Volume 85.5 fL (80.0-94.0); Nucleated Red Blood Cells % 0 % (-); Platelet Count 283 10^3/uL (130-400); Red Cell Dist. Width 12.6 % (11.5-14.5)
[2025-08-11 08:00] VITALS: BP 141/83
[2025-08-11 08:42] LABS: ALT (SGPT) 87 U/L (0-50); AST (SGOT) 36 U/L (17-59); Albumin 5.0 g/dl (3.5-5.0); Alkaline Phosphatase 78 U/L (38-126); Blood Urea Nitrogen 13 mg/dl (9-20); Calcium 9.8 mg/dl (8.4-10.2); Carbon Dioxide 24 mmol/L (22-30); Chloride 101 mmol/L (98-107); Estimated Creatinine Clearance > 125 ml/min; Glucose 132 mg/dl (70-99); Potassium 4.5 mmol/L (3.5-5.1); Sodium 136 mmol/L (135-145); Total Protein 8.0 g/dl (6.3-8.2); eGFR > 60.00
--- NOTE | 2025-08-11 10:50 | W.PN.HOSP.TC ---
Addendum entered and electronically signed by Ladarius Mcclure MD 08/11/25 14:14:
Case discussed with pulmonary. Medically cleared for discharge.
Total time spent on d/c = 41 min. This included today's physical exam, progress note, review of laboratory and diagnostic data, preparation of discharge documents and prescriptions, and discussions about the pt's hospital course and discharge plan
with the patient and other medical equipment technician involved in the patient's care.
Original Note:
Today's Communication/Plan
-
d/c if OK with pulm
Assessment / Plan
Assessment / Plan
Gen: NAD, AAOx3.
Eyes: EOMI, PERRLA, no scleral icterus.
Neck: supple.
CV: RRR, +S1/S2, no m/r/g.
Resp: CTAB, no rales, wheezes, or rhonchi.
Abd: +BS, soft, NT, ND
Skin: No rashes.
Neuro: CN 2-12 intact, non-focal.
Psych: Normal mood and affect.
CTA chest: No CTA evidence for an acute pulmonary thromboembolism within the limitations discussed above.
CXR: No acute cardiopulmonary abnormality.
Acute asthmatic bronchitis:
-failed OP Tx
-saturating well on RA
-cont IV Decadron/Duonebs
-c/s pulm
Other problems:
Morbid obesity due to excess calories: Affects all aspects of care, encourage weight loss
ANTELMO: cont CPAP HS
Anxiety: cont on Buspar
Alcohol abuse disorder: binge drinker (but none over last 2 weekends), monitor for EtOH W/D (low likelihood)
FULL/Lovenox
Dispo: Saturating well on RA. Likely d/c later today after seen by pulm.
Anticipated Discharge: Today
Subjective/Interval History
-
Date of Service: August 11, 2025
Reports SOB at rest.
Objective Data
-
Labs:
Laboratory Results
08/11/25
07:10
WBC 10.3
Hgb 15.1
Hct 44.1
Plt Count 283
Sodium 136
Potassium 4.5
Chloride 101
Carbon Dioxide 24
BUN 13
Creatinine 0.7
Glucose 132 H
Calcium 9.8
Total Bilirubin 0.4
AST 36
ALT 87 H
Alkaline Phosphatase 78
Vital Signs:
Vital Signs
Temp Pulse Resp BP Pulse Ox
98 F 105 20 141/83 94
08/11/25 08:00 08/11/25 08:00 08/11/25 08:00 08/11/25 08:00 08/11/25 08:00
--- NOTE | 2025-08-11 11:43 | CON.PUL ---
Addendum entered and electronically signed by Sandra Vaughan, DO 08/11/25 13:55:
Spirometry reviewed, completed as post�testing: FEV1 1.47L 37%, FVC 1.93 L 39%, ratio 76. Mixed pattern but overall severely reduced, likely underlying obstruction cannot be excluded
Will change Advair regiment to high dose, add Spiriva for maximum inhaler therapy
Continue prednisone taper
ProAir 4 times daily
Follow-up outpatient
Original Note:
Consultation
Consultation Request
Date/Time Consultation Requested: 08/11/25
Date/Time Consultation Performed: 08/11/25
Performing Provider: Alexus
Reason for Consultation: SOB
Medical History
-
History of Present Illness:
44-year-old male with previous history of asthma, sleep apnea on CPAP, morbid obesity presenting with 2 weeks of fever, sore throat and bodyaches lasting 3 to 4 days. Developed shortness of breath, cough and wheezing. He was placed on a Z-Humphrey and
prednisone as well as Advair discus and albuterol inhaler but did not improve. He has a history of exercise-induced asthma as a child, denies any seasonal allergies. He has not been evaluated for asthma as an outpatient, he does follow with [facility]
for his sleep apnea.
Past Medical History
Past Medical History: Other (see list below)
Social History
Tobacco: Non-smoker
Alcohol: None
Drug: None
Family History
Family History: Reviewed & Not Pertinent
Allergies / Home Medications
Allergies
Allergy/AdvReac Type Severity Reaction Status Date / Time
No Known Allergies Allergy Verified 08/10/25 12:56
Home Medications
�Medication �Instructions �Recorded �Confirmed �Last Taken �Type
albuterol 90 mcg-budesonide 80 2 inh inhalation R Q6HPRN PRN sob 08/10/25 08/10/25 Unknown History
mcg/actuation HFA aerosol inhaler
(Airsupra)
azithromycin 250 mg tablet 0 mg PO .COMPLEX 08/10/25 08/10/25 08/10/25 History
buspirone 5 mg tablet 15 mg PO DAILY Mental 08/10/25 08/10/25 08/10/25 History
Health/Anxiety
cholecalciferol (vitamin D3) 25 25 mcg PO DAILY Supplement 08/10/25 08/10/25 08/10/25 History
mcg (1,000 unit) tablet (Vitamin
D3)
fluticasone 250 mcg-salmeterol 50 1 inh inhalation R BID 08/10/25 08/10/25 Unknown History
mcg/dose blistr powdr for Lung/Breathing Issues
inhalation (Advair Diskus)
olmesartan 20 mg tablet (Benicar) 20 mg PO DAILY Heart 08/10/25 08/10/25 08/10/25 History
Disease/Condition
pantoprazole 40 mg tablet,delayed 40 mg PO DAILY Gastrointestinal 08/10/25 08/10/25 08/10/25 History
release (Protonix) Issue
prednisone 20 mg tablet 20 mg PO BID Infection 08/10/25 08/10/25 08/10/25 History
Review of Systems
-
History Source: Patient
All other systems: Negative unless noted
Vitals / Labs / Diagnostic Testing
Vital Signs
Temp Pulse Resp BP Pulse Ox
98 F 88 15 141/83 94
08/11/25 08:00 08/11/25 11:13 08/11/25 11:13 08/11/25 08:00 08/11/25 08:00
Lab Data
08/11/25 07:10
08/11/25 07:10
Microbiology
08/10/25 13:51 Nasal Swab Influenza Types A & B (CAYLA) - Final
Negative for Influenza A & B, NAAT
Negative results must be combined with clinical observations
and patient history.
Nucleic Acid Amplification test (NAAT)performed on the
Nanalysis platform.
Diagnostic Testing:
Physical Exam
-
HEENT: Normocephalic, Anicteric and Moist Mucous Membranes
Cardiovascular: S1/S2 and Regular Rhythm
Respiratory: Wheeze (slight) and Non-Labored Respirations
GI: Soft, Non Distended and Non Tender
Neurology: Awake, Alert, Oriented and No Motor Deficits
Skin: Warm, Dry and Good Color
General: Comfortable and Other (NAD)
Assessment
-
44-year-old male with previous history of asthma, sleep apnea on CPAP, morbid obesity presenting with 2 weeks of fever, sore throat and bodyaches lasting 3 to 4 days. Developed shortness of breath, cough and wheezing. He was placed on a Z-Humphrey and
prednisone as well as Advair discus and albuterol inhaler but did not improve. He has a history of exercise-induced asthma as a child, denies any seasonal allergies. He has not been evaluated for asthma as an outpatient, he does follow with [facility]
for his sleep apnea. We are consulted for evaluation
Asthmatic bronchitis
Shortness of breath, wheezing
Leukocytosis, mild
Conditions present prior to admission
ANTELMO on CPAP
Morbid obesity
Anxiety depression
Hypertension
GERD
Plan
No oxygen was needed on admission, currently saturating >90% on RA
Prior history of lung disease is noted including exercise-induced asthma as a child
Never had PFTs
Suspect patient has asthmatic bronchitis, placed on Advair, prednisone as outpatient with antibiotics but was not improved
CXR/CT obtained indicating no acute findings
We will obtain bedside spirometry to evaluate for asthma, if confirmed we will change his regiment to continue at home
Agree with steroid taper, I will transition to p.o. course
Prior ECHO results are reviewed indicating stable function, no cardiomyopathy
This is not likely contributing
Weight loss measures recommended--BMI over 40
Obesity likely contributing to respiratory symptoms
Can discuss indications for Zepbound as outpatient--especially with qualifying ANTELMO diagnosis
Will need outpatient pulmonary evaluation in our office for PFTs and 6MWT
Reviewed with patient
Discharge planning otherwise per team, we can follow-up with further management as outpatient
Diagnostic Data
Chest X-Ray:
CT Scan: CHEST 08/10/25- No CTA evidence for an acute pulmonary thromboembolism within the limitations discussed above.
Lungs: Minor atelectasis. No focal consolidation, pleural effusion, or pneumothorax. The trachea and central airways are patent.
Echo: 05/11/25- 1. Normal left ventricular size and systolic function without regional wall motion abnormalities. Estimated left ventricular ejection fraction is 55 to 60% by visual estimation.
2. Normal right ventricular size and systolic function.
3. No significant valvular abnormalities.
4. No pericardial effusion.
HST 12/10/20: AHI 14.0 O2 kayce 84%
PFT's:
Reports and relevant images were personally reviewed.
Total time spent on this consultation __60__ minutes which includes review of history, physical exam, medications, laboratory data, personal review of imaging, extensive review of outpatient records, discussion with care team and respiratory therapy.
[2025-08-11] MEDS: BUSPAR 5 MG PO (12:50)
[2025-08-11] MEDS: BUSPAR 10 MG PO (12:50)
--- NOTE | 2025-08-11 14:14 | W.DCSUMMARY ---
Discharge Summary
Discharge Data
Date of Admission: 08/10/25
Date of Discharge: 08/11/25
-
Pending Results: No
Hospital Course
Primary diagnoses:
Acute asthmatic bronchitis
Secondary diagnoses:
Morbid obesity due to excess calories
Obstructive sleep apnea
Anxiety
Alcohol abuse disorder (binge drinking)
Consultants:
Pulmonary
Imaging:
CTA chest: No CTA evidence for an acute pulmonary thromboembolism within the limitations discussed above.
CXR: No acute cardiopulmonary abnormality.
Hospital course: 44-year-old male who was admitted yesterday after presenting with chief complaints of cough, wheezing, and shortness of breath sound in the H&P done on admission. Imaging above and unremarkable. The patient was saturating well on
room air. COVID and flu testing was negative. The patient was started on IV Decadron. He was seen in consultation by pulmonary. He had a flow-volume loop showing FEV1 1.47L 37%, FVC 1.93 L 39%, ratio 76. Patient had a mixed obstructive and
restrictive pattern. The patient's Advair was increased to 500/50. He was started on Spiriva. He was discharged on his prednisone taper. He was given a prescription for nebulizer as well as DuoNebs. He was discharged in medically stable
condition.
Discharge Plan
-
Patient Disposition: Home (Routine Discharge)
Discharge Diagnosis/Procedures: Asthmatic bronchitis
Condition: Good
Diet: Regular
Activity: No restrictions
Driving Restrictions: As prior to admission
Bathing Restrictions: None
Referrals:
James Hoyos DO [Family Provider, Internal Medicine] - in less than 1 week
Prescriptions:
New
ipratropium-albuterol 0.5 mg-3 mg(2.5 mg base)/3 mL Solution For Nebulization
3 ml inhalation R Q4HPRN PRN (Reason: shortness of breath) Qty: 20 0RF
montelukast 10 mg Tablet
10 mg PO QPM Qty: 30 0RF
Spiriva Respimat 2.5 mcg/actuation Mist
2 puff inhalation R DAILY Qty: 1 0RF
fluticasone propion-salmeterol [Advair Diskus] 500-50 mcg/dose blister with device
1 inh inhalation BID Qty: 60 0RF
prednisone 10 mg tablet
10 mg PO DIRECTED Qty: 45 0RF
Rx Instructions:
Taper: 50mg daily x 3 day, 40mg daily x 3 day, 30mg daily x 3 day, 20mg daily x 3 day, 10mg daily x 3 day
Continued
buspirone 5 mg Tablet
15 mg PO DAILY
pantoprazole [Protonix] 40 mg Tablet,Delayed Release (Dr/Ec)
40 mg PO DAILY
olmesartan [Benicar] 20 mg Tablet
20 mg PO DAILY
cholecalciferol (vitamin D3) [Vitamin D3] 25 mcg (1,000 unit) Tablet
25 mcg PO DAILY
Airsupra 90-80 mcg/actuation Hfa Aerosol Inhaler
2 inh INHALATION R Q6HPRN PRN (Reason: sob)
Rx Instructions:
as a single dose; may repeat up to 6 doses per day (12 inhalations)
Discontinued
fluticasone propion-salmeterol [Advair Diskus] 250-50 mcg/dose Blister With Device
1 inh INHALATION R BID
azithromycin 250 mg Tablet
0 mg PO .COMPLEX
Rx Instructions:
For 250 mg dose pack: take 500 mg today (day 1), then 250 mg for 4 days (days 2-5)
prednisone 20 mg Tablet
20 mg PO BID
Rx Instructions:
for 5 days starting 08/06/25
Discharge Orders:
Discharge Patient (As Directed); Ordered 08/11/25
Ordered By: Ladarius Mcclure
Discharge Date and Time
Print Language: CYMRAES
--- NOTE | 2025-08-11 14:27 | CM ---
Patient will d/c home today. Met w/ patient bedside, initial assessment completed. Patient is a 44-year-old morbidly obese male complaining of viral URI symptoms 2 weeks ago with fever, sore throat and bodyaches.
Patient resides w/ parents in a 2ST[facility], 1 step to enter. Patient is independent in all areas. Currently works, drives (+). No recent therapy hx.
Address, points of contact and insurance verified
PCP: James Hoyos
Pharmacy: [facility]
Patient admitted under obs services. OOBS form verbally reviewed, copy provided, copy on chart
Plan: Home, no needs
== END 2025-08-11 15:35 | disposition home or self-care (01) ==
LOC: 4 WEST ACU 21:21
PROVIDERS: Clinical Nurse Specialist Family Health; Emergency Medicine; ADMITTING PHYSICIAN Internal Medicine; ATTENDING PHYSICIAN Internal Medicine; CONSULT PHYSICIAN Internal Medicine; EMERGENCY PHYSICIAN Emergency Medicine; FAMILY PHYSICIAN Internal Medicine
DX: J45.901 Unspecified asthma with (acute) exacerbation (principal); E66.813 Obesity, class 3; Z68.42 Body mass index [BMI] 45.0-49.9, adult; F10.10 Alcohol abuse, uncomplicated; G47.33 Obstructive sleep apnea (adult) (pediatric); I10 Essential (primary) hypertension; K21.9 Gastro-esophageal reflux disease without esophagitis; F41.9 Anxiety disorder, unspecified; Z11.52 Encounter for screening for COVID-19; Z79.51 Long term (current) use of inhaled steroids; Z79.899 Other long term (current) drug therapy
CPT/HCPCS: 71046; 71275; 80053; 84484; 85025; 85379; 87502; 87811; 93005; 94010; 94640; 96374; 99291; G0378; Q9967

== ENCOUNTER 2025-09-11 08:11 | Emergency (ER) | payer OTHER, SELFPAY ==
[2025-09-11 08:13] VITALS: BP 154/84
--- NOTE | 2025-09-11 08:47 | ED.GENMED ---
History of Present Illness
General
Chief Complaint: Breathing Problem
Source: patient
Time Seen by Provider: 09/11/25 08:16
History of Present Illness
History of Present Illness:
44-year-old male presents emergency department after being diagnosed with the flu via urgent care on Sunday. At that time he was describing fever, fatigue, cough, and congestion. Patient has a history of asthma and has daily medications that he is
compliant with. He also will occasionally use albuterol as needed but is reluctant to do so regularly because it causes his heart to race which is a trouble for him. He also states that he started 10 mg of prednisone in response to the symptoms on
Sunday which he is continue today. He presents today because although his fever and fatigue have resolved, he has a persistent cough associated with dyspnea and is worried he may have pneumonia. He denies chest pain or pressure, leg swelling,
abdominal pain, nausea, vomiting, back pain, headache, dizziness, or other complaints.
Past History
Past History
ED Past Medical History: Asthma, HTN and Other
ED Past Surgical History: Cholecystectomy and Other (Eye surgery, hernia repair)
Social History
Tobacco: Non-smoker
Alcohol: Occasional
Drug: None
Personal: Single
Living: with family
Employment: Employed
Phy Exam
Physical Exam
Physical Exam:
GENERAL: Alert , in no apparent distress, pleasant, nontoxic, occasional nonproductive cough noted
EYE: pupils equal and reactive
NECK: Supple, no significant adenopathy.
ENT: o/p clr, mmm.
CARDIAC: Regular rate and rhythm .
LUNGS: Equal breath sounds bilaterally, no acute respiratory distress, diffuse wheezing noted, no stridor, no retractions
ABDOMEN: Soft, without focal tenderness, no r/g, no cvat
NEUROLOGICAL: Alert and oriented, no focal neuro deficits
SKIN: Warm and dry, skin intact.
MUSCULOSKELETAL: No edema, well perfused.
PSYCH: Normal and appropriate interaction.
Course
Orders/Labs/Results
Orders:
Orders
09/11/25 08:36
CR Chest - 2 Views Urgent
Comment:
Reason For Exam: sob, fever
09/11/25 08:47
Electrocardiogram (*1) Urgent
Reason for Study: Shortness of Breath
EKG- Treatment ONCE
Ipratropium/Albuterol Sulfate [Duoneb] 3 ml INH R NOW STA
Prednisone [Deltasone] 50 mg PO NOW STA
Vital Signs
Initial and Last Documented VS:
Initial Vital Signs
Temp Pulse Resp BP Pulse Ox
98.4 F 100 24 154/84 96
09/11/25 08:13 09/11/25 08:13 09/11/25 08:13 09/11/25 08:13 09/11/25 08:13
Last Documented Vital Signs
Temp Pulse Resp BP Pulse Ox
98.4 F 100 15 154/84 93
09/11/25 08:13 09/11/25 08:13 09/11/25 08:30 09/11/25 08:13 09/11/25 09:27
*Pulse Oximetry
SaO2: 95
Patient hypoxic: no
*Critical Care Note
Total Time (30-74mins, 75-104mins- exclusive of procedures): Not Applicable
Update Note
Update Note:
Patient presents to the Emergency Department with dyspnea and cough
Number and Complexity of Problems Addressed at the Encounter
� Chronic conditions affecting care:
� Acute Exacerbation and/or Progression of Chronic Illness:
� Differential Diagnosis includes: But not limited to asthmatic bronchitis, pneumonia, asthma exacerbation, PE, ACS, etc. etc.
Amount and/or Complexity of Data to be Reviewed and Analyzed
� I performed an independent evaluation of and my interpretation is:
EKG:read by me, suinus tachycardia, no acute ischemia
CT:
Xrays:cxr read by me (and rads) nad
Laboratory Studies:
Other:
� Review of other/old records reveals:
� Clinical information was obtained by an independent historian:
� Prescriptions/Medications Considered but not given:
� Further testing considered but not performed:
Risk of Complications and/or Morbidity or Mortality of Patient Management
� Social determinants of health affecting care:
� Discussion with other providers (PCP, Hospitalists, Consultants, etc):
� Escalation of care including admission/observation vs risk of discharge considered:1002AM pox 96%on RA, well appearing, obvious cough, reading a book. No pna noted. Highly suspect asthmatic bronchitis given hx, physical, etc.
Wheezing improved s/p neb. SUspect PE very unlikely, as no pleuritic cp, unilateral leg edema, clninical pic much mroe c/w ashtmatic bronchitis, etc. Will increase steroids and Rx taper, d/w him import of close v/u.
ED Attending Note
-
Portions of this chart may have been created with voice recognition software.� Occasional wrong word or��sound alike� substitutions may have occurred due to the inherent limitations of voice recognition software.
Discharge Plan
Departure
Patient Disposition: Home (Routine Discharge)
Date of Disposition: 09/11/25
Time of Disposition: 10:09
Patient with high blood pressure during this ER visit?: Yes
Condition: Good
Discharge Problem:
Acute asthmatic bronchitis
Instructions: Asthma, Adult (DC), Acute Bronchitis, Adult (DC), BLOOD PRESSURE
Prescriptions:
New
prednisone 10 mg tablet
10 mg PO DIRECTED Qty: 57 0RF
Rx Instructions:
[id number], then [id number], then 34zwogacH7p, then [id number], then [id number], [id number], then d/c
No Action
buspirone 5 mg Tablet
15 mg PO DAILY
pantoprazole [Protonix] 40 mg Tablet,Delayed Release (Dr/Ec)
40 mg PO DAILY
olmesartan [Benicar] 20 mg Tablet
20 mg PO DAILY
cholecalciferol (vitamin D3) [Vitamin D3] 25 mcg (1,000 unit) Tablet
25 mcg PO DAILY
Airsupra 90-80 mcg/actuation Hfa Aerosol Inhaler
2 inh INHALATION R Q4HPRN PRN (Reason: sob)
ipratropium-albuterol 0.5 mg-3 mg(2.5 mg base)/3 mL Solution For Nebulization
3 ml inhalation R Q4HPRN PRN (Reason: shortness of breath) Qty: 20 0RF
Spiriva Respimat 2.5 mcg/actuation Mist
2 puff inhalation R DAILY Qty: 1 0RF
fluticasone propion-salmeterol [Advair Diskus] 500-50 mcg/dose blister with device
1 inh inhalation BID Qty: 60 0RF
NyQuil 7.5-60-30-1,000 mg/30 mL Liquid
30 ml PO HSPRN PRN (Reason: cold symptoms)
ibuprofen [Advil] 200 mg Tablet
600 - 800 mg PO Q4HPRN PRN (Reason: mild pain/fever)
prednisone 10 mg tablet
10 mg PO QPMPRN PRN (Reason: exacerbation of symptoms)
montelukast 10 mg tablet
10 mg PO HS
Referrals:
James Hoyos DO [Family Provider, Internal Medicine] - Follow up in 2-3 days
Activity Restrictions/Additional Instructions:
IF YOU DEVELOP PERSISTENT/WORSENING TROUBLE BREATHING, ANY CHEST PAIN, VOMITING, SWELLING, DIZZINESS, GET WORSE, DO NOT GET BETTER, OR OTHER WORRISOME SIGNS, GO TO THE ER IMMEDIATELY!
Interventions
Interventions:
*Neglect/Abuse Screening Last Done: 09/11/25 08:18
*ED COVID-19 Vaccine History Last Done: 09/11/25 08:18
*ED Influenza Vaccine History Last Done: 09/11/25 08:18
[facility] Fall Risk Assessment Tool Last Done: 09/11/25 09:27
ED- Cardiac Assessment Last Done: 09/11/25 09:28
ED- Pulmonary Assessment Last Done: 09/11/25 09:27
Discharge Date and Time
Print Language: LATVIAN
[2025-09-11] MEDS: DELTASONE 50 MG PO (09:08)
[2025-09-11 09:09] VITALS: BMI 47.9
[2025-09-11] MEDS: DUONEB 3 ML INH (09:09)
== END 2025-09-11 10:45 | disposition home or self-care (01) ==
LOC: EMR 08:11
PROVIDERS: EMERGENCY PHYSICIAN Emergency Medicine; FAMILY PHYSICIAN Internal Medicine
DX: J45.901 Unspecified asthma with (acute) exacerbation (principal); J20.9 Acute bronchitis, unspecified; I10 Essential (primary) hypertension; Z90.49 Acquired absence of other specified parts of digestive tract
CPT/HCPCS: 99284; 94640; 71046; 93005